=== PATIENT | female | born 1955 | race Caucasian/White ===

== ENCOUNTER 2020-10-27 08:05 | Day surgery (SDC) | payer MEDICAID, SELFPAY ==
[2020-10-27] MEDS ORDERED: MEPERIDINE HCL/PF 100 MG/ML AMP ONE (10:28)
[2020-10-27] MEDS ORDERED: SIMETHICONE 40 MG/0.6 ML ML ONE (10:28)
[2020-10-27] MEDS: MIDAZOLAM HCL 5 MG/5 ML VIAL ONE ×2 (10:50→11:05)
[2020-10-27 11:30] VITALS: BP_SYST 144
== END 2020-10-27 12:20 | disposition home or self-care (01) ==
LOC: SMU 08:05 → SDS 08:05
PROVIDERS: ATTEND Internal Medicine Gastroenterology
DX: Z12.11 Encounter for screening for malignant neoplasm of colon (principal); D12.2 Benign neoplasm of ascending colon; D12.3 Benign neoplasm of transverse colon; K64.8 Other hemorrhoids; K29.50 Unspecified chronic gastritis without bleeding; K21.9 Gastro-esophageal reflux disease without esophagitis; I10 Essential (primary) hypertension; E11.9 Type 2 diabetes mellitus without complications; Z20.828 Contact with and (suspected) exposure to other viral communicable diseases
CPT/HCPCS: 36415; 43239; 45380; 45385; 82962; 87081; 87426; 88305; 88312; 88313; 99152; 99153; G0378; J2175; J2250; U0003

== ENCOUNTER 2023-12-23 07:56 | Day surgery (SDC) | payer OTHER ==
[~2023-12-23] VITALS: Ht 167.6 cm; Wt 79.4 kg
[2023-12-23] MEDS: MIDAZOLAM HCL 5 MG/5 ML VIAL ONE (09:00)
[2023-12-23] MEDS: MEPERIDINE 100 MG INJ. 100 MG/ML VIAL ONE (09:00)
[2023-12-23 12:04] VITALS: O2SAT 99
[2023-12-23 15:48] VITALS: BP_SYST 145; PULSE 68; RESP 17
== END 2023-12-23 11:21 | disposition home or self-care (01) ==
LOC: SDS 07:56 → SMU 07:57 → SDS 11:21
PROVIDERS: ATTEND Internal Medicine Gastroenterology
DX: K59.00 Constipation, unspecified (principal); D12.3 Benign neoplasm of transverse colon; D12.4 Benign neoplasm of descending colon; K64.8 Other hemorrhoids; K64.4 Residual hemorrhoidal skin tags; Z86.010 Personal history of colon polyps; E78.00 Pure hypercholesterolemia, unspecified; Z79.899 Other long term (current) drug therapy
CPT/HCPCS: 45385; 99152; 82948; 88305; 99153; G0378; J2250; J2175; 45384